=== PATIENT | male | born 1955 | race African-American/Black ===

== ENCOUNTER 2017-03-21 15:28 | Emergency (ER) | payer OTHER ==
[~2017-03-21] VITALS: Ht 180.3 cm; Wt 137.9 kg
[2017-03-21 16:10] VITALS: BP 132/80
[2017-03-21] MEDS ORDERED: IBUPROFEN 800 MG TAB PO ONE (16:45)
== END 2017-03-21 17:50 | disposition home or self-care (01) ==
LOC: ER 15:33
DX: S16.1XXA Strain of muscle, fascia and tendon at neck level, initial encounter (principal); S40.012A Contusion of left shoulder, initial encounter; S80.01XA Contusion of right knee, initial encounter; E78.5 Hyperlipidemia, unspecified; I10 Essential (primary) hypertension; V43.52XA Car driver injured in collision with other type car in traffic accident, initial encounter; Y93.89 Activity, other specified; Y92.89 Other specified places as the place of occurrence of the external cause; Y99.8 Other external cause status; M25.532 Pain in left wrist
CPT/HCPCS: 72040; 73000